=== PATIENT | male | born 1980 | race American Indian/Alaskan Native ===

== ENCOUNTER 2017-08-01 15:54 | Emergency (ER) | payer SELFPAY ==
--- NOTE | 2017-08-01 16:40 | EDM.PDOC ---
ED HPI GENERAL MEDICAL PROBLEM - General Chief Complaint: Back Pain or Injury Stated Complaint: [id number] LEGS ARE SWOLLEN AND HURT BACK Time Seen by Provider: 08/01/17 16:29 Source of Information: Reports: Patient, RN History Limitations: Reports: No Limitations - History of Present Illness INITIAL COMMENTS - FREE TEXT/NARRATIVE: Js presents to ED with 2 day history of lower back pain. He was moving furniture when he felt a pop in his lower back. He is unable to lay flat a night to sleep. He had minimal relief with Motrin yesterday. He has not tried heat or ice therapy. The pain is described as sore and achey. There is a radiating pain down the back of his left leg. He has noticed the pain is worse when he tries to dorsiflex his toes. No saddle numbness, urinary incontinence, or loss of bowel control. History of back injury in 2005 when he fell of roof. No Physical therapy at that time. 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 [No Known Home Meds] 08/01/17 [History] Past Medical History HEENT History: Reports: None Cardiovascular History: Reports: None Respiratory History: Reports: Asthma Gastrointestinal History: Reports: None Genitourinary History: Reports: None Musculoskeletal History: Reports: RA Neurological History: Reports: None Psychiatric History: Reports: None Endocrine/Metabolic History: Reports: None Hematologic History: Reports: None Immunologic History: Reports: None Oncologic (Cancer) History: Reports: None Dermatologic History: Reports: None - Past Surgical History Head Surgeries/Procedures: Reports: None Social & Family History - Tobacco Use Smoking Status *Q: Current Every Day Smoker Years of Tobacco use: 20 Packs/Tins Daily: 1 Second Hand Smoke Exposure: No - Caffeine Use Caffeine Use: Reports: Coffee, Soda - Recreational Drug Use Recreational Drug Use: No ED ROS GENERAL - Review of Systems Review Of Systems: See Below Constitutional: Reports: No Symptoms. Denies: Fever, Weakness HEENT: Reports: No Symptoms. Denies: Ear Pain Respiratory: Reports: No Symptoms. Denies: Shortness of Breath, Cough Cardiovascular: Reports: No Symptoms. Denies: Chest Pain, Claudication Endocrine: Reports: No Symptoms GI/Abdominal: Reports: No Symptoms. Denies: Abdominal Pain : Reports: No Symptoms. Denies: Hematuria, Incontinence Musculoskeletal: Reports: Back Pain, Leg Pain Skin: Reports: No Symptoms Neurological: Reports: No Symptoms ED EXAM,LOWER BACK PAIN/INJURY - Physical Exam Exam: See Below Exam Limited By: No Limitations General Appearance: Alert, Anxious, Mild Distress Eye Exam: Bilateral Eye: EOMI Ears: Normal External Exam, Hearing Grossly Normal Nose: Normal Inspection Throat/Mouth: Normal Inspection, No Airway Compromise Head: Atraumatic, Normocephalic Neck: Normal Inspection, Supple, Full Range of Motion Respiratory/Chest: No Respiratory Distress, Wheezing (Upper lobes, bilateral. 1 ppd smoker ) Cardiovascular: Normal Peripheral Pulses, Regular Rate, Rhythm, No Murmur Back Exam: Normal Inspection, Decreased Range of Motion, Muscle Spasm, Paraspinal Tenderness, Vertebral Tenderness Extremities: Normal Capillary Refill, Other (unable to dorsiflex left foot ) Neurological: Alert, Oriented x 3, Abnormal Gait (Antalgic gait ). No: Saddle Anesthesia, Difficulty Walking Psychiatric: Normal Affect, Normal Mood Skin Exam: Warm, Dry Course - Vital Signs Last Recorded V/S: Last Vital Signs Temp 97.8 F 08/01/17 16:05 Pulse 75 08/01/17 16:05 Resp 16 08/01/17 16:05 BP 150/91 H 08/01/17 16:05 Pulse Ox 100 08/01/17 16:05 - Orders/Labs/Meds Orders: Active Orders 24 hr Category Date Time Status Lumbar Spine 2 or 3V [CR] Urgent Exams 08/01/17 16:54 Taken Meds: Medications Discontinued Medications Generic Name Dose Route Start Last Admin Trade Name Freq PRN Reason Stop Dose Admin Hydromorphone HCl 0.5 mg 08/01/17 16:41 08/01/17 17:21 Dilaudid SUBCUT 08/01/17 16:42 0.5 mg ONETIME ONE Administration Ketorolac Tromethamine 30 mg 08/01/17 16:41 08/01/17 17:20 Toradol IM 08/01/17 16:42 30 mg ONETIME ONE Administration - Radiology Interpretation Free Text/Narrative:: Loss of normal lumbar curvature. No fractures of vertebra Departure - Departure Time of Disposition: 18:11 Disposition: Home, Self-Care 01 Condition: Good Clinical Impression: Lumbago - Discharge Information Instructions: Back Injury Prevention, [id number], Back Pain, Adult, Easy-to- Read Referrals: PCP,None [Primary Care Provider] - Forms: ED Department Discharge Additional Instructions: Follow up with Primary Care provider for Physical Therapy referral for lower back pain and loss of lumbar curvature. Rx Tordal - this is the oral/pill form of one of the pain medication shots given in the ED Rx Cyclobenzaprine - DO NOT DRIVE or operate machinery on this medication. Patient will be driven home by from the ED. Instructions of DO NOT DRIVE ON CYCLOBENZAPRINE given to . - Problem List & Annotations (1) Lumbago SNOMED Code(s): 128778937 Code(s): M54.5 - LOW BACK PAIN Status: Acute Qualifiers: Chronicity: acute Back pain laterality: unspecified Sciatica presence: with sciatica Sciatica laterality: sciatica of left side Qualified Code(s): M54.42 - Lumbago with sciatica, left side - Problem List Review Problem List Initiated/Reviewed/Updated: Yes - My Orders Last 24 Hours: My Active Orders 08/01/17 16:54 Lumbar Spine 2 or 3V [CR] Urgent - Assessment/Plan Last 24 Hours: My Active Orders 08/01/17 16:54 Lumbar Spine 2 or 3V [CR] Urgent
[2017-08-01] MEDS ORDERED: Ketorolac 30 MG/ML SDV IM ONE (16:41)
[2017-08-01] MEDS ORDERED: HYDROmorphone 0.5 MG/0.5 ML Syringe SUBCUT ONE (16:41)
== END 2017-08-01 18:22 | disposition home or self-care (01) ==
LOC: DL.ED 15:54
DX: M54.5 Low back pain (principal); F17.210 Nicotine dependence, cigarettes, uncomplicated
CPT/HCPCS: 72100; 96372; 99283; 99284; J1170; J1885